=== PATIENT | male | born 1980 | race Caucasian/White ===

== ENCOUNTER 2021-04-09 07:06 | Day surgery (SDC) | payer OTHER ==
[~2021-04-09] VITALS: Ht 177.8 cm; Wt 90.7 kg
[~2021-04-09 07:06] MED LIST: CELE200
[2021-04-09] MEDS ORDERED: OMEP20ER (07:50)
[2021-04-09] MEDS ORDERED: TIZA4 (07:51)
== END 2021-04-09 09:24 | disposition home or self-care (01) ==
LOC: ORSCSDS 07:06
PROVIDERS: Surgery
PROC: 0DJD8ZZ Inspection of Lower Intestinal Tract, Via Natural or Artificial Opening Endoscopic (ICD-10-PCS; principal; 2021-04-09 08:15)
DX: K62.5 Hemorrhage of anus and rectum (principal); R19.4 Change in bowel habit; K64.1 Second degree hemorrhoids; Z87.891 Personal history of nicotine dependence; G40.909 Epilepsy, unspecified, not intractable, without status epilepticus; K21.9 Gastro-esophageal reflux disease without esophagitis; Z79.899 Other long term (current) drug therapy
CPT/HCPCS: J0330; J0461; J2250; J2405; J2704; J7120